=== PATIENT | male | born 1945 | race Caucasian/White ===

== ENCOUNTER → 2019-08-14 09:11 | Outpatient (BNVA) | payer OTHER, SELFPAY | PROVIDERS: Family Provider Emergency Medicine Emergency Medical Services; PCP Emergency Medicine Emergency Medical Services; Visit Provider Urology | DX: R97.20 Elevated prostate specific antigen [PSA] (principal); N40.1 Benign prostatic hyperplasia with lower urinary tract symptoms; N13.8 Other obstructive and reflux uropathy | CPT/HCPCS: 81001; 84153 ==

== ENCOUNTER → 2020-02-25 14:28 | Outpatient (BNVA) | payer OTHER, SELFPAY | PROVIDERS: Family Provider Emergency Medicine Emergency Medical Services; PCP Emergency Medicine Emergency Medical Services; Referring Provider Emergency Medicine Emergency Medical Services; Visit Provider Specialist | DX: G25.0 Essential tremor (principal); Z87.891 Personal history of nicotine dependence | CPT/HCPCS: 99214 ==

== ENCOUNTER → 2020-06-30 12:43 | Outpatient (BNVA) | payer OTHER, SELFPAY | PROVIDERS: Family Provider Emergency Medicine Emergency Medical Services; PCP Emergency Medicine Emergency Medical Services; Visit Provider Specialist | DX: G25.0 Essential tremor (principal); Z87.891 Personal history of nicotine dependence | CPT/HCPCS: 99214 ==

== ENCOUNTER → 2020-08-13 12:28 | Outpatient (BNVA) | payer OTHER, SELFPAY | PROVIDERS: Family Provider Emergency Medicine Emergency Medical Services; PCP Emergency Medicine Emergency Medical Services; Visit Provider Specialist | DX: G24.3 Spasmodic torticollis (principal); G20 Parkinson's disease; F02.80 Dementia in other diseases classified elsewhere, unspecified severity, without behavioral disturbance, psychotic disturbance, mood disturbance, and anxiety; Z87.891 Personal history of nicotine dependence | CPT/HCPCS: 64616; 96116; 99214; J0585 ==

== ENCOUNTER → 2020-10-20 13:00 | Outpatient (BNVA) | payer OTHER, SELFPAY | PROVIDERS: Family Provider Emergency Medicine Emergency Medical Services; PCP Emergency Medicine Emergency Medical Services; Visit Provider Urology | DX: N40.1 Benign prostatic hyperplasia with lower urinary tract symptoms (principal); N13.8 Other obstructive and reflux uropathy; R97.20 Elevated prostate specific antigen [PSA] | CPT/HCPCS: 81003 ==

== ENCOUNTER → 2020-11-12 11:11 | Outpatient (BNVA) | payer OTHER, SELFPAY | PROVIDERS: Family Provider Emergency Medicine Emergency Medical Services; PCP Emergency Medicine Emergency Medical Services; Visit Provider Specialist | DX: G24.3 Spasmodic torticollis (principal); G20 Parkinson's disease; F02.80 Dementia in other diseases classified elsewhere, unspecified severity, without behavioral disturbance, psychotic disturbance, mood disturbance, and anxiety; Z71.89 Other specified counseling; Z87.891 Personal history of nicotine dependence | CPT/HCPCS: 64616; J0585 ==

== ENCOUNTER → 2021-02-04 11:42 | Outpatient (BNVA) | payer OTHER, SELFPAY | PROVIDERS: Family Provider Emergency Medicine Emergency Medical Services; PCP Emergency Medicine Emergency Medical Services; Referring Provider Specialist; Visit Provider Specialist | DX: G24.3 Spasmodic torticollis (principal); G25.0 Essential tremor; T59.891S Toxic effect of other specified gases, fumes and vapors, accidental (unintentional), sequela; Z71.89 Other specified counseling | CPT/HCPCS: 64616; 99212; 99213; J0585 ==

== ENCOUNTER 2021-04-14 10:03 | Emergency (ER) | payer OTHER, MEDICARE, SELFPAY ==
[2021-04-14 10:44] VITALS: BP 159/92; PULSE 71; RESP 17; TEMP 37.2; O2SAT 93; BMI 25.7
--- NOTE | 2021-04-14 11:03 | XR_ITS ---
WS: [id number] Right shoulder, 3 views, 04/14/2021 Clinical Data: fall, pain Comparison: None. Findings: No fractures or dislocations are seen. The AC joint is normal. The adjacent right clavicle, right sca pula and ribs are normal. The soft tissues are unremarkable. XR/XR shoulder RT min 2V* [id number] Impression: Negative right shoulder.
--- NOTE | 2021-04-14 11:03 | XR_ITS ---
WS: [id number] Right wrist, 3 views, 04/14/2021 Clinical Data: fall, injury/pain Comparison: None. Findings: No fractures or dislocations are seen. The carpal bones are intact. There is no soft tissue swelling. The distal radius and ulna are not remarkable. XR/XR wrist RT min 3V* [id number] Impression: Negative right wrist.
--- NOTE | 2021-04-14 11:04 | ED_ITS ---
HPI - Extremity Injury (Upper) General: Chief Complaint: Extremity Injury, Upper Stated Complaint: Right Arm pain Time Seen by Provider: 04/14/21 10:53 Source: patient Mode of arrival: ambulatory Limitations: no limitations History of Present Illness: Patient is a 75-year-old male who presents to ED today with a complaint of right upper extremity injury beginning 3 to 4 days ago after he slipped and fell on ice. He is complaining of pain to his right shoulder and right wrist. Patient states wrist initially was very swollen but states this has improved significantly. He has been using the extremity normally. complaint: injury to: right, shoulder and wrist Onset (ago): day(s) Other Extremity Injury: Right: wrist and shoulder Other injuries: none Place: home Severity: mild Relieving factors: immobilization Exacerbating factors: movement of extremity Context: fall Associated symptoms: Reports no associated symptoms; Denies neck pain Review of Systems Card: Denies: chest pain Resp: Denies: dyspnea GI: Denies: abdominal pain Musc: Reports: joint pain (R shoulder, wrist) and joint swelling (mild R wrist swelling); Denies: neck pain, back pain, extremity pain, extremity swelling or joint redness Neuro: Denies: numbness in extremities or sensory changes PFS ED PFSH: Medical History (Updated 04/14/21 @ 11:27 by CJ Chun) Bilateral inguinal hernia without obstruction or gangrene BPH w urinary obs/LUTS COPD (chronic obstructive pulmonary disease) Elevated PSA Essential tremor History of skin cancer HTN (hypertension) Tubulovillous adenoma of colon Family History Sister Dementia Father Cancer Social History Smoking and tobacco status: unknown if ever smoked Alcohol intake: unknown Adopted: No Caregiver/support person: No Lives independently: Yes Marital status: Single Current occupational status: retired History of recent travel: No Physical Exam Const: COMMON NORMALS: no acute distress, patient oriented x3, no limitations and alert GENERAL APPEARANCE: cooperative and disheveled ORIENTATION/CONSCIOUSNESS: Yes awake, Yes oriented to person, Yes oriented to place and Yes oriented to time OTHER: Chronic tremor secondary to Parkinson's HENMT: COMMON NORMALS: normocephalic and atraumatic HEAD & SCALP: normal to inspection, normocephalic and atraumatic FACE & SINUS: normal facial exam Eye: GENERAL EYE: appearance normal, both eyes and all related structures Neck/C-Spine: COMMON NORMALS: full ROM CERVICAL SPINE: Yes cervical ROM normal, No pain with cervical ROM, No Cervical spine tenderness, No step off deformity and No Paracervical muscle tenderness Chest: COMMONS NORMALS: normal inspection of the chest and normal palpation of entire chest wall Resp: COMMON NORMALS: normal respiratory effort and clear to auscultation bilaterally AUSCULTATION: clear to auscultation bilaterally Cardio: COMMON NORMALS: regular rate and regular rhythm RATE: regular rate RHYTHM: regular rhythm Back/Pelvis: COMMON NORMALS: thoracic and lumbar spine normal to inspection, no thoracic nor lumbar tenderness and thoraco-lumbar ROM normal Extremity: COMMON NORMALS: normal to inspection, capillary refill normal and no clubbing, cyanosis or edema GENERAL: Yes normal exam except as noted RIGHT UPPER EXTREMITY: Yes shoulder joint (mild pain to anterior R shoulder w/o bony deformity) Right shoulder: Yes Right shoulder joint ROM exam (maintains fairly well ROM) and Yes Right shoulder joint neurovascular exam (normal) and Y es wrist (swelling noted to dorsal wrist) Right wrist: Yes palpation (most of pain localized to lateral dorsal wrist) and Yes neurovascular exam (normal) Neuro: HERSON COMA SCALE: document GCS findings Herson coma scale eye opening: Spontaneous [place] coma scale verbal response: Orientated [place] coma scale motor response: Obey commands Herson coma scale total score: 15 COMMON NORMALS: patient oriented x3, moves all extremities, no focal motor deficits and no sensory deficits noted SENSORIUM/ORIENTATION: Yes alert, Yes oriented to person, Yes oriented to place and Yes oriented to time Skin: COMMON NORMALS: no rashes or lesions noted GENERAL SKIN EXAM: no rashes or lesions noted TRAUMA: no lacerations or abrasions Course Vital Signs: Vital signs: Vital Signs Temperature 99.0 F 04/14/21 10:44 Pulse Rate 71 04/14/21 10:44 Respiratory Rate 17 04/14/21 10:44 Blood Pressure 159/92 04/14/21 10:44 Pulse Oximetry 93 04/14/21 10:44 MDM - Extremity Injury (Upper) Medical Decision Making XRs R shoulder and R wrist negative. Discussed conservative therapy at home and follow up with PCP in 1-2 weeks for continued pain. Lab Data Radiology Impressions Shoulder X-Ray 04/14/21 11:03 Impression: Negative right shoulder. Wrist X-Ray 04/14/21 11:03 Impression: Negative right wrist. Discharge Plan Discharge Patient Disposition: Home Clinical Impression: Fall from slipping on ice Qualifiers: Encounter type: initial encounter Qualified Code(s): W00.9XXA - Unspecified fall due to ice and snow, initial encounter Injury of shoulder, right Qualifiers: Encounter type: initial encounter Qualified Code(s): S49.91XA - Unspecified injury of right shoulder and upper arm, initial encounter Right wrist sprain Qualifiers: Encounter type: initial encounter Qualified Code(s): S63.501A - Unspecified sprain of right wrist, initial encounter Condition: Stable Prescriptions: No Action aspirin [Adult Low Dose Aspirin] 81 mg tablet,delayed release (DR/EC) 81 mg PO DAILY 0RF tamsulosin 0.4 mg capsule 0.4 mg PO DAILY 0RF propranolol 120 mg capsule,extended release 24 hr 120 mg PO DAILY 0RF finasteride 5 mg tablet 5 mg PO DAILY 0RF lisinopril 40 mg tablet 40 mg PO DAILY 0RF meloxicam 15 mg tablet 15 mg PO DAILY 0RF hydrochlorothiazide 25 mg tablet 25 mg PO DAILY 0RF primidone 50 mg tablet 100 mg PO BID 3 Days Qty: 120 4RF Rx Instructions: Take 1 tablet daily for 7 days, then 1 twice daily for 7 days, then 2 twice a day. Beware of sedation. Discharge Orders: Discharge ED (Routine); Ordered 04/14/21 Ordered By: Ratna Álvarez Referrals: Jackson Addison DO [Primary Care Provider] - Coding Level of Care Code ED Numerical Control Programmer for Chg Fwd Exam Comprehensive
== END 2021-04-14 11:42 | disposition home or self-care (01) ==
PROVIDERS: Emergency Provider Physician Assistant; PCP Emergency Medicine Emergency Medical Services
DX: S63.501A Unspecified sprain of right wrist, initial encounter (principal); S49.91XA Unspecified injury of right shoulder and upper arm, initial encounter; Z79.82 Long term (current) use of aspirin; J44.9 Chronic obstructive pulmonary disease, unspecified; I10 Essential (primary) hypertension; W00.0XXA Fall on same level due to ice and snow, initial encounter
CPT/HCPCS: 73030; 73110; 99283

== ENCOUNTER → 2021-04-29 10:52 | Outpatient (BNVA) | payer OTHER, SELFPAY | PROVIDERS: PCP Emergency Medicine Emergency Medical Services; Visit Provider Specialist | DX: G20 Parkinson's disease (principal); F02.80 Dementia in other diseases classified elsewhere, unspecified severity, without behavioral disturbance, psychotic disturbance, mood disturbance, and anxiety; G24.3 Spasmodic torticollis | CPT/HCPCS: 64616; 96116; 99213; 99214; J0585 ==

== ENCOUNTER → 2021-09-02 14:14 | Outpatient (BNVA) | payer OTHER, SELFPAY | PROVIDERS: PCP Emergency Medicine Emergency Medical Services; Visit Provider Specialist | DX: G24.3 Spasmodic torticollis (principal); G20 Parkinson's disease; F02.80 Dementia in other diseases classified elsewhere, unspecified severity, without behavioral disturbance, psychotic disturbance, mood disturbance, and anxiety | CPT/HCPCS: 64616; 99212; 99213; J0585 ==

== ENCOUNTER → 2021-11-25 14:33 | Outpatient (BNVA) | payer OTHER, SELFPAY | PROVIDERS: PCP Emergency Medicine Emergency Medical Services; Visit Provider Specialist | DX: G24.3 Spasmodic torticollis (principal); G20 Parkinson's disease; F02.80 Dementia in other diseases classified elsewhere, unspecified severity, without behavioral disturbance, psychotic disturbance, mood disturbance, and anxiety | CPT/HCPCS: 64616; J0585 ==

== ENCOUNTER → 2022-02-17 15:22 | Outpatient (BNVA) | payer OTHER, SELFPAY | PROVIDERS: PCP Emergency Medicine Emergency Medical Services; Visit Provider Specialist | DX: G24.3 Spasmodic torticollis (principal); G20 Parkinson's disease; G31.83 Neurocognitive disorder with Lewy bodies; F02.80 Dementia in other diseases classified elsewhere, unspecified severity, without behavioral disturbance, psychotic disturbance, mood disturbance, and anxiety | CPT/HCPCS: 64616; 99212; J0585 ==

== ENCOUNTER → 2022-05-12 15:01 | Outpatient (BNVA) | payer OTHER, SELFPAY | PROVIDERS: PCP Emergency Medicine Emergency Medical Services; Visit Provider Specialist | DX: G24.3 Spasmodic torticollis (principal); G20 Parkinson's disease; F02.80 Dementia in other diseases classified elsewhere, unspecified severity, without behavioral disturbance, psychotic disturbance, mood disturbance, and anxiety | CPT/HCPCS: 64616; 99213 ==

== ENCOUNTER → 2022-08-11 13:56 | Outpatient (BNVA) | payer OTHER, SELFPAY | PROVIDERS: PCP Emergency Medicine Emergency Medical Services; Visit Provider Specialist | DX: G24.3 Spasmodic torticollis (principal); G20 Parkinson's disease; F02.80 Dementia in other diseases classified elsewhere, unspecified severity, without behavioral disturbance, psychotic disturbance, mood disturbance, and anxiety | CPT/HCPCS: 64616; 99212; J0585 ==

== ENCOUNTER → 2022-11-10 14:28 | Outpatient (BNVA) | payer OTHER, SELFPAY | PROVIDERS: PCP Emergency Medicine Emergency Medical Services; Visit Provider Specialist | DX: G24.3 Spasmodic torticollis (principal) | CPT/HCPCS: 64616; J0585 ==

== ENCOUNTER → 2023-02-16 14:42 | Outpatient (BNVA) | payer OTHER, SELFPAY | PROVIDERS: PCP Emergency Medicine Emergency Medical Services; Visit Provider Specialist | DX: G24.3 Spasmodic torticollis (principal); G25.0 Essential tremor; F02.80 Dementia in other diseases classified elsewhere, unspecified severity, without behavioral disturbance, psychotic disturbance, mood disturbance, and anxiety | CPT/HCPCS: 64616; 99212; J0585 ==

== ENCOUNTER → 2023-05-18 08:36 | Outpatient (BNVA) | payer OTHER, SELFPAY | PROVIDERS: PCP Emergency Medicine Emergency Medical Services; Visit Provider Specialist | DX: G24.3 Spasmodic torticollis (principal); G25.0 Essential tremor; F02.80 Dementia in other diseases classified elsewhere, unspecified severity, without behavioral disturbance, psychotic disturbance, mood disturbance, and anxiety | CPT/HCPCS: 64616; 99212; J0585 ==

== ENCOUNTER → 2023-08-24 08:43 | Outpatient (BNVA) | payer OTHER, SELFPAY | PROVIDERS: PCP Emergency Medicine Emergency Medical Services; Visit Provider Specialist | DX: G24.3 Spasmodic torticollis (principal); G25.0 Essential tremor; F02.80 Dementia in other diseases classified elsewhere, unspecified severity, without behavioral disturbance, psychotic disturbance, mood disturbance, and anxiety | CPT/HCPCS: 64616; 99212 ==

== ENCOUNTER → 2023-12-01 11:32 | Outpatient (BNVA) | payer OTHER, SELFPAY | PROVIDERS: PCP Emergency Medicine Emergency Medical Services; Visit Provider Specialist | DX: G24.3 Spasmodic torticollis (principal); G25.0 Essential tremor; F02.80 Dementia in other diseases classified elsewhere, unspecified severity, without behavioral disturbance, psychotic disturbance, mood disturbance, and anxiety; R03.0 Elevated blood-pressure reading, without diagnosis of hypertension | CPT/HCPCS: 64616; 99213; J0585 ==

== ENCOUNTER 2023-12-28 14:53 | Outpatient (CLI) | payer OTHER, SELFPAY ==
--- NOTE | 2023-12-28 14:59 | CT_ITS ---
WS: [id number] CT NECK WITH CONTRAST HISTORY: NECK LUMP, left-sided neck palpable mass. TECHNIQUE: Contiguous 2 mm axial images are performed through the neck with intravenous contrast. Sag ittal and coronal reformats are also submitted. All CT scans at [facility] use at least one o f these dose optimization techniques: automated exposure control; mA and/or kV adjustment per patient size (includes targeted exams where dose is matched to clinical indication); or iterative reconstruc tion. CONTRAST: CONTRAST: Omnipaque 350; 100 mL IV. DLP: 167.98 mGy.cm COMPARISON: None available. Palpable area along the LEFT neck corresponds to a dense coarse benign-appearing calcification associ ated with the sternocleidomastoid muscle. This calcification measures 4.4 mm. This is slightly lobula tonya and may be due to small there are a few additional scattered calcifications in the soft tissues, bilateral. Adjacent to each other which extend over a length of 13 mm. Naso and oropharynx are negative. There is very slight asymmetry of the vallecula. There is increased soft tissue in the LEFT pyriform sinus. [id number] sinus is small and slightly collapsed. No addition al asymmetry throughout the larynx. No significant lymphadenopathy is identified. Enlarged nodular LEFT thyroid. Heterogeneous nodule measures 1.9 x 1.6 cm on the LEFT. There are very tiny nodules on the RIGHT. Cervical spondylosis. Visualized portions of the skull base demonstrate no abnormalities. Orbits and globes are within norm al limits. No soft tissue masses. Visualized paranasal sinuses and mastoid air cells are normal. Lung apices are clear. CT/CT neck w con* [id number] IMPRESSION: 1. Palpable abnormality along the LEFT neck corresponds to a benign-appearing soft tissue calcification. 2. No lymphadenopathy. 3. Asymmetry of the LEFT pyriform sinus. Loss of volume of the sinus and incre ased soft tissue within the pyriform sinus. This can be further evaluated by di rect visualization.
[2023-12-28 15:35] LABS: Blood Urea Nitrogen 15 mg/dL (8-23)
[2023-12-28] MEDS: iohexol 350 mg/mL 500 mL Btl (per mL) IV (15:43)
== END 2023-12-28 14:54 | disposition home or self-care (01) ==
LOC: RAD 14:54
PROVIDERS: PCP Family Medicine; Visit Provider Family Medicine
DX: R22.1 Localized swelling, mass and lump, neck (principal); J34.89 Other specified disorders of nose and nasal sinuses
CPT/HCPCS: 70491; 82565; 84520

== ENCOUNTER → 2024-03-01 11:35 | Outpatient (BNVA) | payer OTHER, SELFPAY | PROVIDERS: PCP Family Medicine; Visit Provider Specialist | DX: G24.3 Spasmodic torticollis (principal); G25.0 Essential tremor; F02.80 Dementia in other diseases classified elsewhere, unspecified severity, without behavioral disturbance, psychotic disturbance, mood disturbance, and anxiety; R03.0 Elevated blood-pressure reading, without diagnosis of hypertension | CPT/HCPCS: 64616; 99212; J0585 ==

== ENCOUNTER → 2024-06-07 10:56 | Outpatient (BNVA) | payer OTHER, SELFPAY | PROVIDERS: PCP Family Medicine; Visit Provider Specialist | DX: G24.3 Spasmodic torticollis (principal) | CPT/HCPCS: 64616; 99212; J0585; J9999 ==

== ENCOUNTER → 2024-09-05 10:49 | Outpatient (BNVA) | payer OTHER, SELFPAY | PROVIDERS: PCP Family Medicine; Visit Provider Specialist | DX: G24.3 Spasmodic torticollis (principal); G31.83 Neurocognitive disorder with Lewy bodies; F02.80 Dementia in other diseases classified elsewhere, unspecified severity, without behavioral disturbance, psychotic disturbance, mood disturbance, and anxiety; G20.A1 Parkinson's disease without dyskinesia, without mention of fluctuations; G25.0 Essential tremor | CPT/HCPCS: 64616; 99212; J0585; J9999 ==

== ENCOUNTER → 2024-12-12 09:27 | Outpatient (BNVA) | payer OTHER, SELFPAY | PROVIDERS: PCP Family Medicine; Visit Provider Specialist | DX: G24.3 Spasmodic torticollis (principal); G31.83 Neurocognitive disorder with Lewy bodies; F02.A0 Dementia in other diseases classified elsewhere, mild, without behavioral disturbance, psychotic disturbance, mood disturbance, and anxiety; G20.A1 Parkinson's disease without dyskinesia, without mention of fluctuations; F02.80 Dementia in other diseases classified elsewhere, unspecified severity, without behavioral disturbance, psychotic disturbance, mood disturbance, and anxiety; G25.0 Essential tremor | CPT/HCPCS: 64616; J0585; J9999 ==